=== PATIENT | female | born 1980 | race Two or more races ===

== ENCOUNTER 2020-08-28 04:39 | Emergency (ER) | payer OTHER ==
[~2020-08-28] VITALS: Ht 172.7 cm; Wt 74.8 kg
[2020-08-28] MEDS ORDERED: ZYRTEC10 M3 PO (09:32)
[2020-08-28] MEDS ORDERED: ZITHROMAX TRI-500 MG PO (09:32)
[2020-08-28] MEDS ORDERED: TUSSIN DM SYRU118 ML PO (09:32)
== END 2020-08-28 10:49 | disposition home or self-care (01) ==
LOC: ER 04:39
DX: J06.9 Acute upper respiratory infection, unspecified (principal); B34.9 Viral infection, unspecified; Z11.52 Encounter for screening for COVID-19